=== PATIENT | female | born 1965 | race Caucasian/White ===

== ENCOUNTER → 2025-05-24 10:46 | Outpatient (REF) | payer MEDICARE, BC, SELFPAY ==
[2025-05-24 11:34] LABS: Hemoglobin 12.9 g/dL (12.0-16.0); Mean Corp Hgb Conc. 33.1 g/dL (33.0-37.0); Mean Corpuscular Hgb 31.4 pg (27.0-31.0); Mean Corpuscular Volume 94.9 fL (81.0-99.0); Mean Platelet Volume 10.3 fL (7.4-10.4); Platelet Count 183 10^3/uL (130-400); Red Blood Cell Count 4.11 10^6/uL (4.20-5.40); Red Cell Dist. Width 12.4 % (11.5-14.5)
[2025-05-24 14:59] LABS: Blood Urea Nitrogen 10 mg/dl (7-17); Calcium 9.4 mg/dl (8.4-10.2); Carbon Dioxide 32 mmol/L (22-30); Chloride 106 mmol/L (98-107); Glucose 67 mg/dl (70-99); Potassium 4.4 mmol/L (3.5-5.1); Sodium 140 mmol/L (135-145); eGFR > 60.00
== END ==
LOC: SDSPAT 10:46
PROVIDERS: ATTENDING PHYSICIAN Obstetrics & Gynecology; FAMILY PHYSICIAN Family Medicine; OTHER PHYSICIAN Surgery
DX: Z01.818 Encounter for other preprocedural examination (principal)
CPT/HCPCS: 36415; 80048; 85027; 86850; 86900; 86901; 93005

== ENCOUNTER 2025-06-02 05:51 | Inpatient (IN) | payer MEDICARE, BC, SELFPAY ==
[2025-05-24 14:20] VITALS: BMI 16.4
[2025-06-02] VITALS (25 sets, daily range): BP systolic 101–139; BP diastolic 60–91; BMI 15.5
[2025-06-02] MEDS: HEPARIN 5000 UNITS SC (06:51)
[2025-06-02] MEDS: TYLENOL 1000 MG PO (06:52)
[2025-06-02] MEDS: NORMOSOL-R/PLASMALYTE-A 1000 IV ×3 (07:19→21:03)
--- NOTE | 2025-06-02 10:57 | W.IMMPOSTOP ---
Surgical Immed Post Op Note
-
Primary Surgeon: Hang Daley MD
Assitant: CODI Wilson
Pre-op Diagnosis: Pelvic floor dysfunction
Post-op Diagnosis: Same
Procedure Performed: Robotic ventral mesh rectopexy
Anesthesia Type: GET
Specimen / Cultures: None
Estimated Blood Loss: 5 cc from my portion
Complications: None
Operative Findings: Upsylon mesh repair
Dr. Garibay performed a supracervical hysterectomy, mesh sacrocolpopexy, perineoplasty
Normal flexible sigmoidoscopy
--- NOTE | 2025-06-02 11:36 | W.SUR.POST ---
Surgical Immediate Post Op
Note
Pre Op Diagnosis: Pelvic organ prolapse: enterocele and rectocele
Post Op Diagnosis: Pelvic organ prolapse: enterocele and rectocele
Procedure Performed: Robotic supracervical hysterectomy, BSO, sacrocolpopexy, posterior colporrhaphy, perineoplasty, cystoscopy
Primary Surgeon: Iian Garibay MD
Real Estate Transaction Manager: ANDRES Wilson
Anesthesia: General with ET
Estimated Blood Loss: 10 mL
Drains/Shunts: Viveros catheter
Specimens/Cultures: uterus, bilateral tubes and ovaries
Doppler/Duplex/Angio (Y/N): N
Complications: right ear bleeding evaluated by ENT and recommend outpatient follow up
[2025-06-02] MEDS: TYLENOL 650 MG PO ×3 (11:48→20:57)
[2025-06-02] MEDS: MORPHINE SULFATE 2 MG IV ×2 (11:49→14:03)
[2025-06-02] MEDS: TORADOL 15 MG IV ×2 (11:49→17:39)
[2025-06-02] MEDS: MORPHINE SULFATE 4 MG IV ×2 (12:23→15:42)
[2025-06-02] MEDS: DOLOPHINE 10 MG PO ×2 (17:40→20:58)
--- NOTE | 2025-06-02 18:02 | PTCARENOTE ---
1615 Pt arrived from PACU. 2LO2. VSS. Oriented to room and call correa. 5 lap sites OA with glue. bed locked and in lowest position.
--- NOTE | 2025-06-02 18:11 | PTCARENOTE ---
Upon admission assessment patient noted with crepitus throughout abdomen, anterior chest and upper back. surgeons made aware. care ongoing
[2025-06-02] MEDS: ADVAIR HFA 115/21 MCG INHALER INH (19:59)
[2025-06-02] MEDS: OCUFLOX 5 DROP OTIC (20:59)
[2025-06-02] MEDS: LYRICA 75 MG PO (21:02)
[2025-06-02] MEDS: DILAUDID 0.5 MG IV (21:41)
[2025-06-03] MEDS: TORADOL 15 MG IV ×5 (00:07→23:05)
[2025-06-03] MEDS: TYLENOL PO ×2 (00:07→00:11)
[2025-06-03] MEDS: TYLENOL 650 MG PO ×6 (03:02→23:05)
[2025-06-03] MEDS: ROXICODONE 5 MG PO ×4 (03:05→22:34)
[2025-06-03 03:58] VITALS: BP 106/60
[2025-06-03] MEDS: XANAX 0.25 MG PO ×3 (04:02→23:05)
[2025-06-03] MEDS: NORMOSOL-R/PLASMALYTE-A 1000 IV (05:23)
[2025-06-03 06:51] LABS: Hematocrit 34.4 % (37.0-47.0); Hemoglobin 11.4 g/dL (12.0-16.0); Mean Corp Hgb Conc. 33.1 g/dL (33.0-37.0); Mean Corpuscular Volume 93.0 fL (81.0-99.0); Nucleated Red Blood Cells % 0 %; Platelet Count 196 10^3/uL (130-400); Red Cell Dist. Width 12.3 % (11.5-14.5)
[2025-06-03 07:09] LABS: Blood Urea Nitrogen 3 mg/dl (7-17); Calcium 8.1 mg/dl (8.4-10.2); Carbon Dioxide 35 mmol/L (22-30); Chloride 96 mmol/L (98-107); Estimated Creatinine Clearance 70 ml/min; Glucose 73 mg/dl (70-99); Potassium 3.9 mmol/L (3.5-5.1); Sodium 130 mmol/L (135-145); eGFR > 60.00
[2025-06-03 07:13] VITALS: BMI 14.9
[2025-06-03 07:25] VITALS: BP 95/55
--- NOTE | 2025-06-03 07:57 | W.PN.GYN ---
Today's Communication / Plan
-
Wean supplemental O2, advance diet as per primary team, to follow
Physician Note
-
Patient is a 59yoF PMH PMH Chronic back pain, COPD, enterocele and rectocele currently POD1 sp supracervical hysterectomy, BSO, sacrocolpopexy, perineoplasty and ventral mesh rectopexy with Dr. Daley on 06/02/25.
Patient was evaluated on AM rounds. Patient�s pain is controlled on with oxycodone and methadone. She is tolerating liquids and ambulated to the bathroom without difficulty. Reports minimal vaginal bleeding. Reports bloating and passed flatus last
night. She tries to use incentive spirometer for her chronic cough from COPD. She notes it helps her clear mucus. She denies nausea, vomiting, chest pain, SOB.
O :
GA: Well appearing female in NAD
HEENT: Normocephalic, EOMI, no blood per right ear, no evidence of localized trauma visualized.
Pulm: speaking in full sentences on 1.5L of supplemental O2 via NC
Abd: soft, mild distension, sutures intact with dermabond, incisional tenderness
: no bleeding noted in pad, ronquillo catheter draining clear yellow urine
Ext: no lower extremity edema
Vital Signs
Temp Pulse Resp BP Pulse Ox
98.7 F 61 16 95/55 96
06/03/25 07:25 06/03/25 07:25 06/03/25 07:25 06/03/25 07:25 06/03/25 07:25
Intake and Output
06/02/25 06/03/25 06/04/25
06:59 06:59 06:59
Output Total 450 / 450
Balance -450 / -450
Output:
Urine, Ronquillo 450 / 450
Laboratory Results
06/03/25 06:20
06/03/25 06:20
A:
59yoF PMH PMH Chronic back pain, COPD, enterocele and rectocele currently POD1 sp supracervical hysterectomy, BSO, sacrocolpopexy, perineoplasty and ventral mesh rectopexy with Dr. Daley on 06/02/25. Patient is recovering well.
Plan
- Continue to monitor vitals
- Resume home medications
- Monitor vaginal incision bleeding
- Continue pain regimen per pain management team
- Out of bed with assistance
- Wean supplemental O2 with SPO2 goal >88%
- Continue incentive spirometry 10 times a hour
- Consider adding saline nebulizer to improve mucus clearance
- Advance diet per colorectal team
- If patient is ambulating without difficulty then patient may have trial of void today
- Care per colorectal team
[2025-06-03] MEDS: DOLOPHINE 10 MG PO ×3 (08:25→20:54)
[2025-06-03] MEDS: LYRICA 75 MG PO ×2 (08:25→20:53)
[2025-06-03] MEDS: OCUFLOX 1 DROP OTIC ×2 (08:25→20:54)
[2025-06-03] MEDS: COLACE 100 MG PO (08:25)
[2025-06-03] MEDS: ADVAIR HFA 115/21 MCG INHALER 2 PUFF INH ×2 (08:55→21:20)
--- NOTE | 2025-06-03 09:59 | W.PN.CRS1 ---
Today's Communication / Plan
-
Will advance to regular diet.
Remove Viveros.
Lovenox for DVT prophylaxis, continue SCD's and ambulate
Hgb slightly low (dilutional and acute blood loss anemia).
Possible discharge later.
Assessment/Plan
-
POD#1 a/p robotic ventral mesh rectopexy/hysterectomy/BSO, sacroculpopexy, perineoplasty.
Progressing well.
Will advance to regular diet.
Remove Viveros.
Lovenox for DVT prophylaxis, continue SCD's and ambulate
Hgb slightly low (dilutional and acute blood loss anemia).
Possible discharge later.
Subjective Data
Procedure
Robotic ventral mesh rectopexy/hysterectomy/BSO, sacroculpopexy, perineoplasty 06/02/25
Subjective Data
Date of Service: June 03, 2025
She has no complaints. Her pain is manageable. She is passing flatus and is hungry.
Objective Data
-
Vital Signs
Temp Pulse Resp BP Pulse Ox
98.7 F 62 16 95/55 95
06/03/25 07:25 06/03/25 09:12 06/03/25 09:12 06/03/25 07:06/03/25 09:12
Intake & Output
06/02/25 06/03/25 06/04/25
06:59 06:59 06:59
Output Total 450 / 450
Balance -450 / -450
Output:
Urine, Viveros 450 / 450
Lab Results
06/03/25 06:20
06/03/25 06:20
Physical Exam
-
General: No Acute Distress
Abdomen: Soft, Non Distended and Non Tender
Extremities: No Edema and No Calf Tenderness
Incision: Clear, Dry, Intact
[2025-06-03 10:37] VITALS: BMI 14.9
[2025-06-03 11:05] VITALS: BP 109/63
--- NOTE | 2025-06-03 11:06 | CM ---
CM following re: discharge planning.
Reviewed pt's chart, met with pt.
Pt is a 59 year old female, admitted with primary dx of POD#1 a/p robotic ventral mesh rectopexy/hysterectomy/BSO, sacrocolpopexy, perineoplasty. Continue supportive care.
Pt reports she lives with partner Kalyi in a 2SH in [facility] and will stay with mother in Law 1SH with no steps in [place] at discharge. Pt stated she has supportive son lázaro. 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
partner is a aircraft layout worker at [employer]. Pt reports she ambulates with a cane at baseline and partner helps as needed.
PT and OT will evaluate the pt to determine a level of care at discharge.
PCP: Katharine Carrillo
Pharmacy: will be [facility] in [place].
D/C plan: home to mother in law house with family support.
CM will follow with discharge plan updates as hospitalization progresses
[2025-06-03 15:05] VITALS: BP 109/61
[2025-06-03] MEDS: NORMOSOL-R/PLASMALYTE-A IV (15:51)
[2025-06-03] MEDS: LOVENOX 40 MG SC (17:17)
[2025-06-03 23:00] VITALS: BP 85/57
[2025-06-04 03:15] VITALS: BP 117/68
[2025-06-04] MEDS: TYLENOL PO (04:59)
[2025-06-04 06:00] VITALS: BMI 16.7
[2025-06-04] MEDS: FLUSH (NSS) 2 FLUSH IV (06:07)
[2025-06-04] MEDS: TORADOL 15 MG IV ×2 (06:07→11:02)
[2025-06-04] MEDS: ROXICODONE 5 MG PO ×2 (06:24→11:09)
[2025-06-04 07:40] VITALS: BP 129/75
[2025-06-04] MEDS: COLACE 100 MG PO (08:19)
[2025-06-04] MEDS: TYLENOL 650 MG PO ×2 (08:19→11:02)
[2025-06-04] MEDS: DOLOPHINE 10 MG PO (08:19)
[2025-06-04] MEDS: LYRICA 75 MG PO (08:19)
[2025-06-04] MEDS: OCUFLOX 5 DROP OTIC (08:20)
[2025-06-04] MEDS: ADVAIR HFA 115/21 MCG INHALER 2 PUFF INH (08:45)
--- NOTE | 2025-06-04 09:31 | W.PN.CRS1 ---
Today's Communication / Plan
-
Nutrition consult and discharge.
Assessment/Plan
-
POD 2.
Tolerating diet and doing well.
Incisions look good.
Patient requests nutrition consult.
Will discharge today.
Subjective Data
Procedure
Robotic ventral mesh rectopexy/hysterectomy/BSO, sacroculpopexy, perineoplasty 06/02/25
Subjective Data
Date of Service: June 04, 2025
Good pain control.
Tolerating diet.
Objective Data
-
Vital Signs
Temp Pulse Resp BP Pulse Ox
98.1 F 60 18 129/75 96
06/04/25 07:40 06/04/25 07:40 06/04/25 07:40 06/04/25 07:40 06/04/25 07:40
Intake & Output
06/03/25 06/04/25 06/05/25
06:59 06:59 06:59
Intake Total 1900 / 1900
Output Total 1100 / 1100
Balance 800 / 800
Intake:
Oral fluids 1200 / 1200
IV fluids (Total) 700 / 700
Output:
Urine, Viveros 1100 / 1100
Other:
Number of approximated MODERATE 3
amounts of urine
Lab Results
06/03/25 06:20
06/03/25 06:20
Physical Exam
-
General: No Acute Distress
Chest: Clear
Cardiovascular: Regular Rate & Rhythm
Abdomen: Distended (mild) and Non Tender
Extremities: No Edema
Skin: Warm and Dry
Incision: Clear, Dry, Intact and No Skin Erythema
--- NOTE | 2025-06-04 09:33 | W.DS.TRANS ---
DC Summary - Rail Bender
-
Discharge Instructions:
Discharge Diagnosis/Procedures Robotic supracervical hysterectomy, BSO,
sacrocolpopexy, posterior colporrhaphy,
perineoplasty, cystoscopy
Diet Regular
Activity No strenuous activity
Additional Activity No lifting over 10lbs (gallon of milk)
Driving Restrictions No driving for 1 week
Bathing Restrictions OK to Shower
Wound Care
Allow glue to naturally fall off. Do not pick at
incisions.
Instructions:
Stand-Alone Forms:
Changes to Home Medications: No
Discharge Medications:
DC Medications w/original date entered in [employer]
albuterol sulfate 90 mcg/actuation aerosol inhaler 2 puff inhalation 6XD PRN COPD 05/26/25
alprazolam 0.25 mg tablet 0.25 mg PO BID PRN anxiety 05/26/25
bisacodyl 5 mg tablet,delayed release (Dulcolax (bisacodyl)) 15 - 20 mg PO PRN PRN constipation 05/26/25
cefpodoxime 100 mg tablet 100 mg PO Q12H 05/26/25
docusate sodium 100 mg capsule (Colace) 100 mg PO DAILY 05/26/25
estradiol 0.01% (0.1 mg/gram) vaginal cream 1 appful vaginal HS 05/26/25
fish, borage, flaxseed oils-omega 3,6,9 comb no.1 1,200 mg capsule (Stinnett 3-6-9) 2 cap PO DAILY 05/26/25
ibuprofen 200 mg tablet 400 mg PO Q6H PRN pain 05/26/25
methadone 10 mg tablet 10 mg PO TID 05/26/25
morphine 15 mg immediate release tablet 7.5 - 30 mg PO BID PRN pain 05/26/25
multivitamin 1 tab PO DAILY 05/26/25
naproxen sodium 220 mg tablet (Aleve) 220 mg PO BID PRN pain 05/26/25
nicotine (polacrilex) 4 mg gum (Nicorette) 2 mg buccal Q2H PRN smoking cessation 05/26/25
pregabalin 75 mg capsule 75 mg PO BID 05/26/25
bisacodyl 5 mg tablet,delayed release (Dulcolax (bisacodyl)) 20 mg PO DIRECTED PRN preprocedure 06/01/25
valacyclovir 500 mg tablet (Valtrex) 500 mg PO PRN PRN Cold Sores 06/01/25
fluticasone 250 mcg-salmeterol 50 mcg/dose blistr powdr for inhalation 1 inh inhalation BID 06/02/25
Home Medication Changes
Pending Results: No (OR pathology)
--- NOTE | 2025-06-04 10:56 | CM ---
CM following re: discharge planning.
Reviewed pt's chart, met with pt.
Discharge order noted.
Pt is aware, expressed her agreement with discharge and pt confirmed she will go to mother in Law 1SH with no steps in [place] and pt stated her partner Kayli will transport her.
IMM reviewed, placed on chart, pt has a copy.
Pt stated she does not need after care VN services.
D/C plan: home to mother in law house with family support. Partner Kayli to transport.
--- NOTE | 2025-06-04 11:06 | W.PN.GYN ---
Today's Communication / Plan
-
discharge planning per primary team
Physician Note
-
59yoF PMH PMH Chronic back pain, COPD, enterocele and rectocele currently POD2 sp supracervical hysterectomy, BSO, sacrocolpopexy, perineoplasty and ventral mesh rectopexy with Dr. Daley on 06/02/25.
Patient was evaluated on AM rounds. Patient passed TOV yesterday. She is tolerating regular diet. Ambulating without assistance. Reports minimal vaginal discharge and occasional urinary incontinence with standing. No longer on O2. She denies
nausea, vomiting, chest pain, SOB.
O :
GA: Well appearing female in NAD
HEENT: Normocephalic, EOMI
Abd: soft, mild distension, sutures intact with dermabond, incisional tenderness, small 2cm round hard tender mass noted around midline incision, no palpable fluctuance
: Minimal vaginal spotting noted in pad
Ext: no lower extremity edema
Vital Signs
Temp Pulse Resp BP Pulse Ox
98.1 F 60 18 129/75 96
06/04/25 07:40 06/04/25 07:40 06/04/25 07:40 06/04/25 07:40 06/04/25 08:17
Intake and Output
06/03/25 06/04/25 06/05/25
06:59 06:59 06:59
Intake Total 1900 / 1900
Output Total 1100 / 1100
Balance 800 / 800
Intake:
Oral fluids 1200 / 1200
IV fluids (Total) 700 / 700
Output:
Urine, Viveros 1100 / 1100
Other:
Number of approximated MODERATE 3
amounts of urine
Laboratory Results
06/03/25 06:20
06/03/25 06:20
A:
59yoF PMH PMH Chronic back pain, COPD, enterocele and rectocele currently POD2 sp supracervical hysterectomy, BSO, sacrocolpopexy, perineoplasty and ventral mesh rectopexy with Dr. Daley on 06/02/25. Patient passed TOV and is recovering well.
Plan
- Continue to monitor vitals
- Monitor vaginal incision bleeding
- Regular diet
- Out of bed with assistance
- Likely discharge home per primary team
- Recommend applying ice to suspected postop hematoma at midline incision; advised to call office if incision becomes larger or becomes red, develops discharge or bleeding
- Followup in two weeks for exam; office will call for followup. Patient may restart estrogen cream in two weeks.
- Patient should refer to urogyn postop packet provided at preop appointment. Postop restrictions: avoid heavy lifting over 10lbs, no vaginal intercourse and no tub bathing or swimming x 6 weeks
[2025-06-04] MEDS: XANAX 0.25 MG PO (11:09)
--- NOTE | 2025-06-04 12:29 | PN.CDI ---
CDI
- -
CDI:
Physician Documentation Request
Admit Date: 06/02/25 05:51
Dear Doctor Edi
06/02 patient underwent Robotic ventral mesh rectopex
Sodium result
Laboratory Tests
06/03/25
06:20
Sodium 130 L
Could you please provide a diagnosis that supports the above lab abnormalities:
Hyponatremia
Abnormal lab value clinically insignificant
Other
Use of terms such as suspected, likely, concern for, or probable (associated with a specific diagnosis that is being evaluated, monitored, or treated as if it exists) are acceptable and can be coded in the inpatient setting, when documented at the
time of discharge.
Thank you,
Laura Ruggiero RN, BSN
CDI Specialist
tiger text
Please use your independent medical judgment in providing your response.
[2025-06-04 13:05] VITALS: BP 118/68
--- NOTE | 2025-06-08 08:42 | W.PN.UPDATE ---
Update Note
Progress Note Update
Noted to have hyponatremia, most likely due to dilution.
== END 2025-06-04 15:09 | disposition home or self-care (01) | DRG 742 ==
LOC: 2 SOUTH 05:51
PROVIDERS: Obstetrics & Gynecology; ADMITTING PHYSICIAN Surgery; FAMILY PHYSICIAN Family Medicine
PROC: 0UT78ZZ Resection of Bilateral Fallopian Tubes, Via Natural or Artificial Opening Endoscopic (ICD-10-PCS; 2025-06-02)
PROC: 0UT28ZZ Resection of Bilateral Ovaries, Via Natural or Artificial Opening Endoscopic (ICD-10-PCS; 2025-06-02)
PROC: 0DSP4ZZ Reposition Rectum, Percutaneous Endoscopic Approach (ICD-10-PCS; 2025-06-02)
PROC: 0DUP4JZ Supplement Rectum with Synthetic Substitute, Percutaneous Endoscopic Approach (ICD-10-PCS; 2025-06-02)
PROC: 8E0W8CZ Robotic Assisted Procedure of Trunk Region, Via Natural or Artificial Opening Endoscopic (ICD-10-PCS; 2025-06-02)
PROC: 0JUC3JZ Supplement of Pelvic Region Subcutaneous Tissue and Fascia with Synthetic Substitute, Percutaneous Approach (ICD-10-PCS; 2025-06-02)
PROC: 0WQN4ZZ Repair Female Perineum, Percutaneous Endoscopic Approach (ICD-10-PCS; 2025-06-02)
PROC: 0USG8ZZ Reposition Vagina, Via Natural or Artificial Opening Endoscopic (ICD-10-PCS; 2025-06-02)
PROC: 0UT98ZL Resection of Uterus, Supracervical, Via Natural or Artificial Opening Endoscopic (ICD-10-PCS; 2025-06-02)
DX: N81.5 Vaginal enterocele (principal); D62 Acute posthemorrhagic anemia; K56.1 Intussusception; E87.1 Hypo-osmolality and hyponatremia; K62.3 Rectal prolapse; J44.9 Chronic obstructive pulmonary disease, unspecified; G89.4 Chronic pain syndrome
CPT/HCPCS: 80048; 85025; 86900; 86901; 88307; 94640; 99406; C1713; C1763; J1335

== ENCOUNTER 2025-08-16 06:37 | Outpatient (RCR) | payer MEDICARE, BC, SELFPAY | END 2025-08-16 23:59 | disposition home or self-care (01) | LOC: RPT 06:37 | PROVIDERS: ATTENDING PHYSICIAN Obstetrics & Gynecology; FAMILY PHYSICIAN Family Medicine | DX: M62.89 Other specified disorders of muscle (principal); R10.2 Pelvic and perineal pain; R15.9 Full incontinence of feces; Z73.6 Limitation of activities due to disability; Z98.890 Other specified postprocedural states | CPT/HCPCS: 97163; 97530 ==